=== PATIENT | female | born 1990 | race Two or more races ===

== ENCOUNTER → 2019-12-14 | Emergency (ER) | payer MEDICAID ==
[~2019-12-14] VITALS: Ht 167.6 cm; Wt 56.7 kg
[2019-12-14 19:29] LABS: Urine Bacteria NONE SEEN /hpf (None Seen); Urine Blood 2+ /uL (Negative); Urine Specific Gravity 1.001 (1.001-1.035); Urine WBC <1 /hpf (0 - 5)
[2019-12-14 22:38] VITALS: BP 116/61
== END | disposition home or self-care (01) ==
LOC: ER 18:07
DX: O41.8X10 Other specified disorders of amniotic fluid and membranes, first trimester, not applicable or unspecified (principal); O46.8X1 Other antepartum hemorrhage, first trimester; Z3A.01 Less than 8 weeks gestation of pregnancy
CPT/HCPCS: 36415; 76801; 76817; 81001; 84702